=== PATIENT | female | born 1990 | race Caucasian/White ===

== ENCOUNTER 2022-08-01 17:30 | Emergency (ER) | payer OTHER ==
[2022-08-01 17:48] VITALS: BP 120/67
[2022-08-01 18:54] LABS: CORONAVIRUS 229E-RESP PCR NOT DETECTED; CORONAVIRUS HKU1-RESP PCR NOT DETECTED; CORONAVIRUS NL63-RESP PCR DETECTED; CORONAVIRUS OC43-RESP PCR NOT DETECTED; HUMAN METAPNEUMOVIRUS NOT DETECTED; INFLUENZA A- RESP PCR PANEL NOT DETECTED; RHINOVIRUS/ENTEROVIRUS NOT DETECTED; SARS-CoV-2 -RESP PCR PANEL NOT DETECTED
[2022-08-01 18:55] LABS: B. PARAPERTUSSIS- RESP PCR PAN NOT DETECTED; B. PERTUSSIS- RESP PCR PANEL NOT DETECTED; C. PNEUMONIAE- RESP PCR PANEL NOT DETECTED; INFLUENZA B - RESP PCR PANEL NOT DETECTED; M. PNEUMONIAE- RESP PCR PANEL NOT DETECTED; PARAINFLUENZA VIRUS 1 NOT DETECTED; PARAINFLUENZA VIRUS 2 NOT DETECTED; PARAINFLUENZA VIRUS 3 NOT DETECTED; PARAINFLUENZA VIRUS 4 NOT DETECTED; RSV- RESP PCR PANEL NOT DETECTED
--- NOTE | 2022-08-01 19:20 | ED Physician Documentation ---
History of Present Illness - Stated complaint Stated Complaint: FEVER, SOA,CONGESTION - Chief complaint Chief Complaint: Resp - Additonal information Additional information: 31-year-old female presents emergency department for evaluation of 3 days cough, congestion and sore throat. Subjective fevers at home. Reportedly 14 weeks . She moved to the [place] 1 week ago but prior to moving she did have care which included an ultrasound confirming intrauterine . She is denying any lower abdominal pelvic pain, nausea vomiting or dysuria. No vaginal bleeding or loss of fluids. Review of Systems Constitutional: reports: Chills, Myalgias, Fatigue. denies: Fever Nose: reports: Rhinorrhea / runny nose Respiratory: reports: Cough GI: reports: Reviewed and negative : reports: Reviewed and negative Skin: reports: Reviewed and negative PD PAST MEDICAL HISTORY - Present Medications Home Medications: Ambulatory Orders Medication Instructions Recorded Confirmed No Known Home Medications 08/01/22 08/01/22 - Allergies Allergies/Adverse Reactions: Allergies Allergy/AdvReac Type Severity Reaction Status Date / Time No Known Drug Allergies Allergy Verified 08/01/22 17:48 PD ED PE NORMAL - General General: Alert and oriented X 3, No acute distress - HEENT HEENT: Atraumatic, Moist mucous membranes, Pharynx benign - Neck Neck: Supple, no meningeal sign, No JVD - Cardiac Cardiac: RRR, No murmur - Respiratory Respiratory: No respiratory distress, Clear bilaterally - Abdomen Abdomen: Normal bowel sounds, Soft - Back Back: No CVA TTP, No spinal TTP - Derm Derm: Normal color, Warm and dry, No rash - Extremities Extremities: No deformity - Neuro Neuro: Alert and oriented X 3, 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 parapertussis DNA (PCR) NOT DETECTED Nasal Coronavir 229E PCR NOT DETECTED Nasal Coronavir HKU1 PCR NOT DETECTED Nasal Coronavir NL63 PCR DETECTED A Nasal Coronavir OC43 PCR NOT DETECTED Nasal Enterovir/Rhinovir PCR NOT DETECTED Nasal Influenza B PCR NOT DETECTED Nasal Influenza A PCR NOT DETECTED Nasal Parainfluen 1 PCR NOT DETECTED Nasal Parainfluen 2 PCR NOT DETECTED Nasal Parainfluen 3 PCR NOT DETECTED Nasal Parainfluen 4 PCR NOT DETECTED Nasal RSV (PCR) NOT DETECTED Nasal B.pertussis DNA PCR NOT DETECTED Nasal C.pneumoniae (PCR) NOT DETECTED David Human Metapneumo PCR NOT DETECTED Nasal M.pneumoniae (PCR) NOT DETECTED Nasal SARS-CoV-2 (PCR) NOT DETECTED PD Medical Decision Making - ED course Complexity details: reviewed results, re-evaluated patient, considered differential, d/w patient ED course: 31-year-old female who was incidentally 14 weeks presents with 3 days cough cold congestion subjective fevers. She has tested positive for coronavirus variant though not COVID-19. Cardiopulmonary auscultation was unremarkable. Unremarkable vital signs with no hypoxia. Deferred imaging given . She also presents with her 2-year-old son who has similar. They have both tested positive for the same virus. At this time routine conservative care of a viral URI of cough was discussed. Routine emergent return precautions discussed Departure - Departure Disposition: 01 Home, Self Care Clinical Impression: Viral URI with cough, Coronavirus infection Condition: Stable Record reviewed to determine appropriate education?: Yes Comments: You have had cough congestion sore throat difficulty breathing for 3 days. Your son has as well. You have both tested positive for coronavirus. Though this is a coronavirus it is not the same virus that causes COVID-19. In general I expect that you will do well with this. You can take Tylenol for any body aches or discomfort. You can try Benadryl or Claritin for congestion. Frequently blowing your nose or using a chest rub like Vicks can be helpful. Continue to try and establish care with an OB. If you develop any lower abdominal pain, have difficulty urinating, pain with urination severe chest pain or fainting episodes please return immediately to the ER.
== END 2022-08-01 19:25 | disposition home or self-care (01) ==
LOC: ED 17:30
DX: O98.511 Other viral diseases complicating pregnancy, first trimester (principal); U07.1 COVID-19; J06.9 Acute upper respiratory infection, unspecified; Z3A.14 14 weeks gestation of pregnancy
CPT/HCPCS: 87633; 99283

== ENCOUNTER 2022-08-06 08:00 | Outpatient (CLI) | payer OTHER ==
[2022-08-06 17:26] LABS: BILIRUBIN,URINE NEGATIVE (NEGATIVE); CLARITY,URINE CLEAR (CLEAR); GLUCOSE, URINE (UA) NEGATIVE (NEGATIVE); KETONES,URINE (UA) NEGATIVE (NEGATIVE); LEUKOCYTE ESTERASE, URINE TRACE (NEGATIVE); NITRITE,URINE NEGATIVE (NEGATIVE); OCCULT BLOOD,URINE NEGATIVE (NEGATIVE); PH,URINE 5.5 PH (5.0-7.5); PROTEIN,URINE NEGATIVE (NEGATIVE); UROBILINOGEN,URINE 0.2 (NORMAL) E.U./dL (NORMAL)
[2022-08-06 18:11] LABS: BACTERIA,URINE Many /HPF (None Seen); MUCUS,URINE Marked Strands; RBC,URINE 0-5 /HPF (0-5); SQUAMOUS EPITHELIAL CELL,UR MANY Squamous (<= Few); WBC,URINE 0-3 /HPF (0-5); YEAST,URINE PRESENT
[2022-08-06 18:12] LABS: CRYSTALS,URINE 26-50 Ca Oxalate /LPF
== END 2022-08-06 23:59 | disposition home or self-care (01) ==
LOC: LAB.WC 08:00
PROVIDERS: ATTEND Nurse Practitioner
DX: Z34.90 Encounter for supervision of normal pregnancy, unspecified, unspecified trimester (principal)
CPT/HCPCS: 81001; 87086

== ENCOUNTER 2022-08-13 08:00 | Outpatient (CLI) | payer OTHER ==
[2022-08-14 15:49] LABS: BILIRUBIN,URINE NEGATIVE (NEGATIVE); CLARITY,URINE CLEAR (CLEAR); GLUCOSE, URINE (UA) NEGATIVE (NEGATIVE); KETONES,URINE (UA) NEGATIVE (NEGATIVE); LEUKOCYTE ESTERASE, URINE NEGATIVE (NEGATIVE); NITRITE,URINE NEGATIVE (NEGATIVE); OCCULT BLOOD,URINE NEGATIVE (NEGATIVE); PH,URINE 5.5 PH (5.0-7.5); PROTEIN,URINE NEGATIVE (NEGATIVE); UROBILINOGEN,URINE 0.2 (NORMAL) E.U./dL (NORMAL)
[2022-08-14 16:02] LABS: BACTERIA,URINE None Seen /HPF (None Seen); RBC,URINE 0-5 /HPF (0-5); SQUAMOUS EPITHELIAL CELL,UR MOD Squamous (<= Few); WBC,URINE 0-3 /HPF (0-5)
[2022-08-14 20:21] LABS: CHLAMYDIA TRACHOMATIS DNA NEGATIVE (NEGATIVE); TRICHOMONAS VAGINALIS DNA NEGATIVE (NEGATIVE)
[2022-08-14 20:22] LABS: NEISSERIA GONORRHOEAE DNA NEGATIVE (NEGATIVE)
== END 2022-08-13 23:59 | disposition home or self-care (01) ==
LOC: LAB.WC 08:00
PROVIDERS: ATTEND Obstetrics & Gynecology
DX: Z36.89 Encounter for other specified antenatal screening (principal)
CPT/HCPCS: 81001; 87086; 87491; 87591; 87661

== ENCOUNTER 2022-09-11 08:00 | Outpatient (CLI) | payer OTHER ==
[2022-09-11 18:20] LABS: BACTERIAL VAGINOSIS DNA POSITIVE (NEGATIVE); CANDIDA GLABRATA DNA NEGATIVE (NEGATIVE); CANDIDA GROUP DNA POSITIVE (NEGATIVE); CANDIDA KRUSEI DNA NEGATIVE (NEGATIVE); TRICHOMONAS VAGINALIS DNA NEGATIVE (NEGATIVE)
== END 2022-09-11 23:59 | disposition home or self-care (01) ==
LOC: LAB.WC 08:00
PROVIDERS: ATTEND Obstetrics & Gynecology
DX: N89.8 Other specified noninflammatory disorders of vagina (principal)
CPT/HCPCS: 81514

== ENCOUNTER 2022-09-12 15:57 | Outpatient (CLI) | payer OTHER ==
--- NOTE | 2022-09-14 11:43 | Ultrasound Report ---
PROCEDURE: OB Detailed Eval INDICATIONS: SUPERVISION OF OUTSIDE/PRIOR DATING DATA: Last menstrual period (LMP): 04/23/2022. LMP-based estimated date of delivery (CLAIRE): 01/28/2023. First dating scan (date and location): 09/20 05[address] [facility]. Estimated date of delivery (CLAIRE) from first dating scan: 01/28/2023. The below data below was generated using the working CLAIRE of 01/28/2023 TECHNIQUE: Real-time scanning was performed of the fetus, with image documentation and biometric measurements. COMPARISON: None. FINDINGS: General: A single living intrauterine gestation is present. Presentation: Variable Placenta: Placental position is posterior, without previa. Amniotic fluid index: 17.3 cm; largest pocket 5.7 cm. heart rate: 140 beats per minute. Maternal cervical canal: 3.0 cm long; normal length is 2.5 cm or more. biometrics: Biparietal diameter: 19 weeks 3 days Head circumference: 19 weeks 5 days Abdominal circumference: 20 weeks 1 day Femur length: 19 weeks 4 days Estimated gestational age from initial scan: 20 weeks 2 days. Composite gestational age from present scan: 19 weeks 3 days Estimated weight and percentile: 318 g; 23.9% Measurement variability in biometric dating: +/- 10 days from 12-20 weeks gestation, +/- 2 weeks from 20-30 weeks gestation, +/- 3 weeks at 30 weeks gestation or later. Anatomic survey: Neuro: Ventricles are normal at less than 10 mm. Cisterna magna is normal at 3-11 mm. Cerebellum i s normal in size and morphology. Nuchal skin fold: Normal at less than 6 mm between 14 and 20 weeks gestational age. Face: Nose and lips, facial profile are normal. Spine: No evidence for spina bifida. Heart: 4-chambered heart is present, with normal ventricular outflow tracts. Diaphragm: Diaphragm is intact. Stomach: Left-sided stomach is present. Kidneys: No hydronephrosis. Normal is less than 5 mm in 2nd trimester, less than 7 mm in 3rd trimester. Cord: 3 vessel cord has orthotopic insertion. Bladder: Normal in size. Extremities: All 4 extremities are visualized. IMPRESSION: 1. A single living intrauterine gestation is present. Ultrasound dating concordant with clinical dati ng. 2. Normal anatomic survey. 3. The estimated weight is 23.9% for gestational age. 4. TEJINDER 17.3 cm. Reviewed by: Tereza Abraham MD on 09/14/2022 11:41 AM PDT Approved by: Tereza Abraham MD on 09/14/2022 11:41 AM PDT Station ID: [id number]
== END 2022-09-12 15:58 | disposition home or self-care (01) ==
LOC: DI 15:57
PROVIDERS: ATTEND Obstetrics & Gynecology
DX: Z34.92 Encounter for supervision of normal pregnancy, unspecified, second trimester (principal)

== ENCOUNTER 2022-11-05 15:12 | Outpatient (CLI) | payer OTHER ==
[2022-11-05 16:45] LABS: HCT - HEMATOCRIT 38.9 % (37.0-47.0); HGB - HEMOGLOBIN 12.9 g/dL (12.0-16.0); MEAN CORPUSCULAR HEMOGLOBIN 31.5 pg (27.0-31.0); MEAN CORPUSCULAR HGB CONC 33.2 g/dL (32.0-36.0); MEAN CORPUSCULAR VOLUME 94.9 fL (81.0-99.0); MEAN PLATELET VOLUME 10.6 fL (7.9-10.8); RED BLOOD COUNT 4.1 10^6/uL (4.20-5.40); RED CELL DISTRIBUTION WIDTH 12.3 % (12.0-15.0)
[2022-11-07 05:13] LABS: HIV SCREEN 4TH GENERATION Non Reactive (Non Reactive)
== END 2022-11-05 15:13 | disposition home or self-care (01) ==
LOC: LAB 15:12
PROVIDERS: ATTEND Obstetrics & Gynecology
DX: Z34.90 Encounter for supervision of normal pregnancy, unspecified, unspecified trimester (principal); Z36.89 Encounter for other specified antenatal screening
CPT/HCPCS: 36415; 82950; 85027; 86787; 86850; 87389

== ENCOUNTER 2022-11-08 08:04 | Outpatient (CLI) | payer OTHER ==
[2022-11-08 08:35] LABS: GTT GLUCOSE,FASTING 89 mg/dL (70-100)
== END 2022-11-08 08:05 | disposition home or self-care (01) ==
LOC: LAB 08:04
PROVIDERS: ATTEND Obstetrics & Gynecology
DX: O99.810 Abnormal glucose complicating pregnancy (principal)
CPT/HCPCS: 36415; 82951; 82952

== ENCOUNTER 2022-11-19 15:59 | Outpatient (CLI) | payer OTHER ==
[2022-11-19 16:12] LABS: HGB - HEMOGLOBIN 11.4 g/dL (12.0-16.0); MEAN CORPUSCULAR HEMOGLOBIN 31.7 pg (27.0-31.0); MEAN CORPUSCULAR HGB CONC 33.5 g/dL (32.0-36.0); MEAN CORPUSCULAR VOLUME 94.4 fL (81.0-99.0); MEAN PLATELET VOLUME 10.6 fL (7.9-10.8); RED BLOOD COUNT 3.6 10^6/uL (4.20-5.40); RED CELL DISTRIBUTION WIDTH 12.1 % (12.0-15.0)
[2022-11-19 16:25] LABS: ALBUMIN 2.9 g/dL (3.2-5.5); ALBUMIN/GLOBULIN RATIO 0.8 (1.0-2.2); BILIRUBIN,TOTAL 0.3 mg/dL (0.2-1.0); CALCIUM 8.6 mg/dL (8.5-10.3); CREATININE 0.5 mg/dL (0.4-1.0); POTASSIUM 3.7 mmol/L (3.5-5.0); TOTAL PROTEIN 6.4 g/dL (6.7-8.2)
== END 2022-11-19 16:00 | disposition home or self-care (01) ==
LOC: LAB 15:59
PROVIDERS: ATTEND Obstetrics & Gynecology
DX: O14.03 Mild to moderate pre-eclampsia, third trimester (principal); O99.013 Anemia complicating pregnancy, third trimester
CPT/HCPCS: 36415; 80053; 82728; 85027

== ENCOUNTER 2022-11-29 16:13 | Outpatient (CLI) | payer OTHER ==
--- NOTE | 2022-11-30 09:33 | Ultrasound Report ---
PROCEDURE: OB F/U or Repeat INDICATIONS: UTERINE SIZE DATE DISCREPENCY OUTSIDE/PRIOR DATING DATA: Last menstrual period (LMP): 04/23/2022. LMP-based estimated date of delivery (CLAIRE): 01/28/2023 First dating scan (date and location): 09/12/2022. At an outside hospital Estimated date of delivery (CLAIRE) from first dating scan: 01/28/2023. TECHNIQUE: Real-time scanning was performed of the fetus, with image documentation and biometric measurements. COMPARISON: 09/12/2022 FINDINGS: General: A single living intrauterine gestation is present. Presentation: Vertex Placenta: Placental position is posterior, without previa. Amniotic fluid index: 11.6, normal for gestational age. heart rate: 136 beats per minute. biometrics: Biparietal diameter: 7.99 cm, 32 weeks and 1 day Head circumference: 30.12 cm, 33 weeks and 3 days Abdominal circumference: 27.1 cm, 31 weeks and 3 days Femur length: 5.86 cm, 30 weeks and 4 days Estimated gestational age from initial scan: 31 weeks and 3 days Composite gestational age from present scan: 31 weeks and 6 days Estimated weight and percentile: 1739 g, 33.8 percentile Measurement variability in biometric dating: +/- 10 days from 12-20 weeks gestation, +/- 2 weeks from 20-30 weeks gestation, +/- 3 weeks at 30 weeks gestation or more. Other: Not applicable. IMPRESSION: Living intrauterine gestation at 31 weeks and 3 days. Biometry today is concordant, rm mated weight at the 34th percentile. Normal TEJINDER. Reviewed by: Dilshad Chang MD on 11/30/2022 9:32 AM PDT Approved by: Dilshad Chang MD on 11/30/2022 9:32 AM PDT Station ID: [id number]
== END 2022-11-29 16:14 | disposition home or self-care (01) ==
LOC: DI 16:13
PROVIDERS: ATTEND Obstetrics & Gynecology
DX: O26.843 Uterine size-date discrepancy, third trimester (principal); Z3A.31 31 weeks gestation of pregnancy

== ENCOUNTER 2022-12-24 15:12 | Outpatient (CLI) | payer OTHER ==
[2022-12-24 15:44] VITALS: BP 121/79
[2022-12-24 15:56] LABS: BASOPHILS % (AUTO) 0.2 %; EOSINOPHILS % (AUTO) 0.2 %; HCT - HEMATOCRIT 38.4 % (37.0-47.0); HGB - HEMOGLOBIN 12.8 g/dL (12.0-16.0); LYMPHOCYTES # (AUTO) 2.5 10^3/uL (1.5-3.5); LYMPHOCYTES % (AUTO) 25.1 %; MEAN CORPUSCULAR HEMOGLOBIN 31.7 pg (27.0-31.0); MEAN CORPUSCULAR HGB CONC 33.3 g/dL (32.0-36.0); MEAN PLATELET VOLUME 11.8 fL (7.9-10.8); MONOCYTES # (AUTO) 0.7 10^3/uL (0.0-1.0); MONOCYTES % (AUTO) 6.8 %; NEUTROPHILS # (AUTO) 6.6 10^3/uL (1.5-6.6); NEUTROPHILS % (AUTO) 67.1 %; PLT - PLATELET COUNT 144 10^3/uL (130-450); RED BLOOD COUNT 4.04 10^6/uL (4.20-5.40); RED CELL DISTRIBUTION WIDTH 13.8 % (12.0-15.0); WHITE BLOOD COUNT 9.9 x10^3/uL (4.8-10.8)
[2022-12-24 16:02] LABS: BILIRUBIN,URINE NEGATIVE (NEGATIVE); CLARITY,URINE CLEAR (CLEAR); GLUCOSE, URINE (UA) NEGATIVE (NEGATIVE); KETONES,URINE (UA) NEGATIVE (NEGATIVE); LEUKOCYTE ESTERASE, URINE NEGATIVE (NEGATIVE); NITRITE,URINE NEGATIVE (NEGATIVE); OCCULT BLOOD,URINE NEGATIVE (NEGATIVE); PH,URINE 5.5 PH (5.0-7.5); PROTEIN,URINE NEGATIVE (NEGATIVE); UROBILINOGEN,URINE 0.2 (NORMAL) E.U./dL (NORMAL)
[2022-12-24 16:08] LABS: ALBUMIN 3.7 g/dL (3.2-5.5); ALBUMIN/GLOBULIN RATIO 1.2 (1.0-2.2); BILIRUBIN,TOTAL 0.3 mg/dL (0.2-1.0); CREATININE 0.6 mg/dL (0.6-1.3); POTASSIUM 4.2 mmol/L (3.5-4.5); TOTAL PROTEIN 6.8 g/dL (6.4-8.9)
[2022-12-24 16:08] LABS: CREATININE,URINE 59.5 mg/dL; PROTEIN/CREATININE RATIO,URINE 0.3 (<=0.2)
[2022-12-24 18:06] LABS: RUPTURE OF MEMBRANES PLUS NEGATIVE (NEGATIVE)
--- NOTE | 2022-12-25 19:11 | PROVIDER PROGRESS NOTE ---
- HPI Chief Complaint: Hypertension/PIH Current : Current EDU 01/28/23 Gestation 35 Weeks and 0 Days 2 Para 1 Vital Signs Temperature 98.2 F 12/24/22 15:37 Heart Rate 81 12/24/22 15:37 Respiratory Rate 18 12/24/22 15:37 Blood Pressure 121/79 12/24/22 15:37 Temperature 98.2 F 12/24/22 15:37 Heart Rate 81 12/24/22 15:37 Respiratory Rate 18 12/24/22 15:37 Blood Pressure 121/79 12/24/22 15:37 O2 Saturation If not protocol: Oxygen Flow, liters/minute - Procedures OB Procedure Performed: NST Diagnosis/Indication for NST: Gestational Hypertension NST Procedure: NST Procedure Start Date 12/24/22 Start Time 15:35 Vibroacoustic Stimulation Used No Patient States Movement Yes EFM: 140s, moderate variability, positive 15x15 accelerations, no decelerations [place]: irregular contractions 4-8m SVE 2/50/-3 unchanged after 1-2 hours Performed and read 12/24/22 Service Date of procedure: 12/25/22 - Plan Plan: 32yo at 35.1w sent from office visit for BP 140/78. Denies headache, visual changes. First BP elevation. Also with cramping and pressure. Reports leaking after SVE, so ROM plus collected. No vaginal bleeding. Good movement. VSS GEN: NAD CV: Regular rate Resp: Breathing unlabored Ext: nt SVE2/50/-3 unchanged after 1-2h 32yo at 35.1w, false labor - SVE unchanged, 2cm - BP normal here. One elevated BP. PCR 0.3. If she has another BP elevation plan for 37w IOL if not delivered by then. - Follow up by 1w
== END 2022-12-24 18:05 | disposition home or self-care (01) ==
LOC: WFO 15:12 → FBP 15:14 → WFO 18:05
PROVIDERS: ATTEND Obstetrics & Gynecology
DX: O13.3 Gestational [pregnancy-induced] hypertension without significant proteinuria, third trimester (principal); O47.03 False labor before 37 completed weeks of gestation, third trimester; Z3A.35 35 weeks gestation of pregnancy
CPT/HCPCS: 36415; 59025; 80053; 81001; 81003; 82570; 84112; 84156; 85025; 99214

== ENCOUNTER 2022-12-25 08:00 | Outpatient (CLI) | payer OTHER | END 2022-12-25 23:59 | disposition home or self-care (01) | LOC: LAB.WC 08:00 | PROVIDERS: ATTEND Obstetrics & Gynecology | DX: Z34.90 Encounter for supervision of normal pregnancy, unspecified, unspecified trimester (principal) | CPT/HCPCS: 87797 ==

== ENCOUNTER 2022-12-25 17:36 | Outpatient (CLI) | payer OTHER ==
[2022-12-25 17:53] VITALS: BP 113/66
--- NOTE | 2022-12-25 19:02 | PROVIDER PROGRESS NOTE ---
- HPI Chief Complaint: Labor Current : Current EDU 01/28/23 Gestation 35 Weeks and 1 Days 2 Para 1 Vital Signs Temperature 98.1 F 12/25/22 17:42 Heart Rate 92 12/25/22 17:42 Respiratory Rate 18 12/25/22 17:42 Blood Pressure 113/66 12/25/22 17:42 Temperature 98.1 F 12/25/22 18:20 Heart Rate 92 12/25/22 18:20 Respiratory Rate 18 12/25/22 18:20 Blood Pressure 113/66 12/25/22 18:20 O2 Saturation 100 12/25/22 17:46 If not protocol: Oxygen Flow, liters/minute - Procedures OB Procedure Performed: NST Diagnosis/Indication for NST: labor NST Procedure: NST Procedure Start Date 12/25/22 Start Time 17:44 Stop Time 18:15 Vibroacoustic Stimulation Used No Patient States Movement Yes EFM: 130s, moderate variability, positive 15x15 accelerations, no decelerations [place]: no contractions NST reactive/Cat 1 Performed and read 12/25/22 Service Date of procedure: 12/25/22 - Plan Plan: 32yo at 35.1w presenting for pressure and cramping since yesterday. She was also evaluated yesterday for similar concerns. Denies leaking fluid. No bleeding. Good movement. care at [facility] and complicated by anemia. VSS GEN: NAD CV: Regular rate Resp: Breathing unlabored Ext: nt SVE 2/50/-3 unchanged from yesterday 32yo at 35.1w, false labor - Labor precautions - Follow up as scheduled
== END 2022-12-25 18:25 | disposition home or self-care (01) ==
LOC: WFO 17:36 → FBP 17:37 → WFO 18:25
PROVIDERS: ATTEND Obstetrics & Gynecology
DX: O47.03 False labor before 37 completed weeks of gestation, third trimester (principal); Z3A.35 35 weeks gestation of pregnancy; Z34.90 Encounter for supervision of normal pregnancy, unspecified, unspecified trimester
CPT/HCPCS: 59025; 87797; 99214

== ENCOUNTER 2022-12-27 13:48 | Outpatient (CLI) | payer OTHER ==
[2022-12-27 14:07] VITALS: BP 116/90
--- NOTE | 2022-12-27 14:28 | PROVIDER PROGRESS NOTE ---
Subjective - Prog Note Date Prog Note Date: 12/27/22 Prog Note Time: 14:24 - Subjective Subjective: Patient is a at 35+3 weeks complaining of back pain and very intermittent contractions. Positive movement. Denies vaginal bleeding and leakage of fluid. Pain is worse with walking, located lower bilaterally. No urinary symptoms. Objective - Vital Signs/Intake & Output Vital Signs: Vital Signs x48h Temp Pulse Resp BP 12/27/22 13:59 98.2 F 71 16 116/90 H - Objective General Appearance: positive: No acute distress Cardiovascular: positive: Regular rate & rhythm Abdomen: positive: Non-tender (gravid) Extremities: positive: Non-tender - Other Results/Comments Other Results/Comments: NST reactive at 35+ weeks Patient had elevated diastolic blood pressure and elevated blood pressure at previous visit. She had a recent UPCr that was 0.3 and meets criteria for pre-eclampsia. Advised patient to return for headache not relieved with tylenol, changes in vision, right upper quadrant pain, pre-eclampsia precautions given. Discussed induction at 37 weeks unless she develops symptoms. Recommended support belt for back pain.
[2022-12-27 14:39] LABS: RUPTURE OF MEMBRANES PLUS NEGATIVE (NEGATIVE)
== END 2022-12-27 15:05 | disposition home or self-care (01) ==
LOC: WFO 13:48 → FBP 13:49 → WFO 15:05
PROVIDERS: ATTEND Obstetrics & Gynecology Obstetrics
DX: O99.891 Other specified diseases and conditions complicating pregnancy (principal); M54.9 Dorsalgia, unspecified; O14.93 Unspecified pre-eclampsia, third trimester; Z3A.35 35 weeks gestation of pregnancy
CPT/HCPCS: 59025; 84112; 99213

== ENCOUNTER 2022-12-31 14:52 | Outpatient (CLI) | payer OTHER ==
[2022-12-31] MEDS ORDERED: ACETAMINOPHEN 500 MG TABLET PO SCH (15:30)
[2022-12-31 15:36] VITALS: BP 109/76
--- NOTE | 2023-01-01 09:35 | PROCEDURE REPORT ---
- HPI Diagnosis/Indication for NST: Gestational Hypertension Current EDU 01/28/23 Gestation 36 Weeks and 0 Days 2 Para 1 Vital Signs Temperature 98.2 F 12/31/22 15:04 Heart Rate 89 12/31/22 15:04 Respiratory Rate 16 12/31/22 15:04 Blood Pressure 109/76 12/31/22 15:04 Temperature 98.2 F 12/31/22 16:00 Heart Rate 89 12/31/22 16:00 Respiratory Rate 16 12/31/22 16:00 Blood Pressure 109/76 12/31/22 16:00 O2 Saturation If not protocol: Oxygen Flow, liters/minute - NST Procedure NST Procedure Start Date 12/31/22 Start Time 15:00 Stop Time 15:38 Vibroacoustic Stimulation Used No Patient States Movement Yes EFM: 130s, moderate variability, positive 15x15 accelerations, no decelerations [place]: no contractions NST reactive/Cat 1 Performed and read 12/31/22 - Results and Plan Findings/Impression: 32yo at 36.1w presenting for scheduled NST for preeclampsia - NST reactive - BP normal today, plan for 37w IOL - Follow up as scheduled
== END 2022-12-31 16:05 | disposition home or self-care (01) ==
LOC: WFO 14:52 → FBP 14:53 → WFO 16:05
PROVIDERS: ATTEND Obstetrics & Gynecology
DX: O14.93 Unspecified pre-eclampsia, third trimester (principal); Z3A.36 36 weeks gestation of pregnancy
CPT/HCPCS: 59025; A9270

== ENCOUNTER 2023-01-03 15:08 | Outpatient (CLI) | payer OTHER ==
[2023-01-03 15:38] VITALS: BP 115/70; O2SAT 100
--- NOTE | 2023-01-03 16:02 | PROCEDURE REPORT ---
- HPI Diagnosis/Indication for NST: Gestational Hypertension Vital Signs Temperature 98.1 F 01/03/23 15:15 Heart Rate 88 01/03/23 15:15 Respiratory Rate 16 01/03/23 15:15 Blood Pressure 115/70 01/03/23 15:15 O2 Saturation 100 01/03/23 15:15 Temperature 97.9 F 01/03/23 15:25 Heart Rate 88 01/03/23 15:15 Respiratory Rate 16 01/03/23 15:15 Blood Pressure 115/70 01/03/23 15:15 O2 Saturation 100 01/03/23 15:15 If not protocol: Oxygen Flow, liters/minute 32yo @ 36&3 presents for scheduled NST. scheduled 2'2 mild preEclampsia and has a plan for IOL on saturday mild GUTIERREZ / vis changes / RUQ pain. reports that the GUTIERREZ is her baseline GUTIERREZ. 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 Her FOB is her support system and he is supportive her family and his family live in [place] Fam: unremarkable - NST Procedure NST Procedure 130 mod robert + A cells though not 2 in 20 minutes no D cells cat 1, though not reactive. Start Time 15:00 Stop Time 15:38 - Results and Plan Findings/Impression: due to decreased movement and NST cat 1, though not reactive will order BPP to check TEJINDER. Plan: if BPP 01/08 OK to D/C home precautions reviewed f/u for IOL on Saturday as planned with primary OB or earlier pending signs and symptoms.
--- NOTE | 2023-01-03 18:47 | Ultrasound Report ---
PROCEDURE: OB Biophysical Profile INDICATIONS: decreased FM OUTSIDE/PRIOR DATING DATA: Last menstrual period (LMP): 04/23/2022. LMP-based estimated date of delivery (CLAIRE): 01/28/2023. First dating scan (date and location): 09/12/2022. Estimated date of delivery (CLAIRE) from first dating scan: 01/28/2023. TECHNIQUE: Real-time scanning was performed of the fetus, with image documentation and biometric tin surements. Biophysical profile was also obtained. Endovaginal scanning: None COMPARISON: 11/29/2022. FINDINGS: General: A single living intrauterine gestation is present. Presentation: Vertex Placenta: Placental position is posterior, without previa. Amniotic fluid index: 12.7 cm. Largest pocket measures 4.5 cm heart rate: 141 beats per minute. Maternal cervical canal: Maternal cervix not well seen Estimated gestational age from initial scan: 36 weeks and 3 days. Biophysical profile: Tone: 2 points. Movement: 2 points. Respiration: 2 points. Largest pocket of fluid: 2 points. Umbilical artery Doppler: S/D ratios 2.16, 1.98, 3.34 (within normal limits for gestational age) IMPRESSION: Single living intrauterine gestation with estimated gestational age of approximately 36 weeks and 3 d ays. Biophysical profile of 8 out of 8. Unremarkable S/D ratios and cord Doppler waveforms Reviewed by: Mega Martinez MD on 01/03/2023 6:46 PM PDT Approved by: Mega Martinez MD on 01/03/2023 6:46 PM PDT Station ID: [id number]
== END 2023-01-03 17:37 | disposition home or self-care (01) ==
LOC: WFO 15:08 → FBP 15:08 → WFO 17:37
PROVIDERS: ATTEND Obstetrics & Gynecology
DX: O14.03 Mild to moderate pre-eclampsia, third trimester (principal); O36.8130 Decreased fetal movements, third trimester, not applicable or unspecified; Z3A.36 36 weeks gestation of pregnancy; Z87.891 Personal history of nicotine dependence
CPT/HCPCS: 59025